=== PATIENT | male | born 2000 | race Caucasian/White ===

== ENCOUNTER 2021-12-29 18:18 | Observation (INO) ==
--- NOTE | 2021-12-29 18:29 | Emergency Department Note ---
Impression & Plan Epileptic seizure, Recurrent seizures ED Provider Note Name: RENITA NELSON Age: 21 Sex: M Arrives Via: Ambulance Informant: Patient, EMS, Mother ED Provider: Raulito Doe MD Chief Complaint: Seizure Impression: As per impressions above Medical Decision Makin-year-old healthy male who has a seizure disorder since age of 17 arrives for evaluation of 4 seizures within the last 12 hours. These are tonic-clonic in nature. The first 2 were overnight in the second 2 or this afternoon with patient not fully come to between the third and fourth seizures. Mother did give him some Klonopin prior to arrival. Patient was awake alert oriented on arrival and given some Ativan to help further protect from further seizure. Initial labs were unremarkable. His vital signs noted some tachycardic and mild/low-grade temperature elevation. He has a mild sore throat and thus strep was sent which is negative. COVID/flu is negative. He no nuchal rigidity and is not showing any evidence of meningitis on examination. His labs show mild WBC elevation consistent with recent seizure as there is no other clear evidence of infection. At hospitalist request that he get a chest x-ray which is negative. Patient was discussed with his neurology team at [facility] who felt that patient should be loaded with Keppra 2 g and monitored overnight. They suggested increasing his Lamictal to 250 mg twice daily. Did discuss this with the mother who is somewhat anxious about that as at that dose he has had issues with side effects in the past. I will note following the Ativan and Keppra patient was quite somnolent. Patient is able to be awoken and answers questions before falling back to sleep. He is not having further seizure activity. Patient did admit that he had missed the dose of his Lamictal earlier in the week as well as having been drinking last night. I suspect this is all lowered his seizure threshold resulting in the recurrent seizures today. I do not feel this is truly infectious though a slight viral infection could cause a lower threshold as well. I do not feel that LP would be indicated at this time given no evidence of nuchal rigidity and patient looking appearing well at this time. Mother is at bedside throughout his care and was on board with this plan. Prior Medical Record and Triage/Nursing Notes reviewed by Me Additional history obtained from chart Differentials:Epilepsy, infection, hypoglycemia, electrolyte abnormalities, cardiac sources, intracerebral event, trauma, toxicologic, neurologic, syncope, as well as other pathologies. Vital Signs: reviewed and remarkable for tachy Interventions: IV lock, normal saline bolus, Tylenol p.o., Ativan IV, Keppra IV Labs:Reviewed and remarkable for no significant abnormalities Imagin view chest x-ray unremarkable. CT head was not obtained as I discussed this with mother and she agrees that he has had many images studies before and that this is similar to previous seizure issues other than the recurrence today. EKG:Per My Interpretation: Indication Seizure: Sinus Tach 113 bpm, qtc 430. No Ectopy. No Ischemia. No previous for comparison Cardiac/Tele Monitoring: Cardiac Monitoring: An Order was placed for continuous cardiac monitoring. The monitor shows a rate of 80 with a normal sinus rhythm. Consults:Dr Dawson [place] Hospitalist Dr Elizabeth Conn Neuro - [facility] Plan: Disposition:Hospitalization. Condition: Good History of Present Illness:49-year-old gentleman arrives for evaluation of a seizure. Patient with a long history of seizure disorder followed at [facility]. He notes that few days ago he missed the dose of his Lamictal and the next day did have a brief tonic-clonic seizure. He said he recovered from that and was feeling well. Last night he did drink some alcohol before going to bed. Overnight per his girlfriend he had 2 seizures. Throughout the day he had 2 more seizures. His mother did drive up from [place] this morning due to the seizures overnight and on having further he was brought in by EMS. Patient states he currently has a headache, tongue pain but denies any other symptoms. He does admit he bit his tongue several times during the seizures. He has no d ifficulty breathing, chest pain, shortness of breath, back pain, abdominal pain, nausea, vomiting, urinary/bowel symptoms, leg swelling or other symptoms. He has had no falls nor injuries. He denies any drug or tobacco abuse. Patient does have a seizure disorder diagnosed and is on Lamictal chronically for it. He had no medications prior to arrival. ROS: See above HPI for pertinent positives & negatives. A total of 10 systems reviewed and were otherwise negative. Past Medical History:Seizures Past Surgical History:[place]vik teeth Family History:Healthy no medical issues Social History:[employer] [facility] from [place], occasional alcohol, no drug/tobacco use Home Medications:Lamictal Allergies:No known drug allergies Vitals:Blood Pressure: 112/58, Pulse 79, RR 18, T 36.7C, O2 96% on RA Physical Exam: GENERAL: Patient is tired appearing and in mild distress. EYES: No scleral icterus, unremarkable pupils. ENT: Mucous membranes moist, no nasal congestion. Multiple abrasions to tongue NECK: No masses appreciated, nomeningismus, trachea is midline. RESPIRATORY: No dyspnea. Clear to auscultation and equal bilaterally. No wheeze, no rhonchi. CARDIOVASCULAR: Regular rate and rhythm.No murmurs, rubs, gallops appreciated. GASTROINTESTINAL: Abdomen soft, non-tender, no peritonitis.Bowel sounds positive.No masses appreciated. BACK: No midline tenderness, no CVA tenderness EXTREMITIES: Normal motion all extremities, no cyanosis, no edema. NEUROLOGIC: Alert and oriented, no acute motor or sensory deficits, no focal weakness, cranial nerves grossly intact. SKIN: No rash, no jaundice, no diaphoresis. PSYCH: Appropriate GCS: 15 ED Course: Times/Reassessments: Stable though did get quite somnolent after Ativan and Keppra. He is sleeping soundly but is able to be awoken. He was monitored for some some time without any further seizure activity. To hospitalize mother is on board with Raulito Doe MD Past Med/Surg History Social History Smoking Status: Never smoker Preferred Language: Pashto Feels Safe at Home: Yes Allergies Allergies Allergy/AdvReac Type Severity Reaction Status Date / Time No Known Allergies Allergy Unverified 12/29/21 20:14 Home Meds Home Medications Medication Instructions Recorded Confirmed lamotrigine 200 mg tablet,extended 200 mg PO QAM 12/29/21 12/29/21 release 24 hr lamotrigine 250 mg tablet,extended 250 mg PO QPM 12/29/21 12/29/21 release 24 hr multivitamin 1 tab PO DAILY 12/29/21 12/29/21 Results & Data (ED) Vital Signs Vital Signs - 24 hr 12/29/21 18:40 12/29/21 19:32 12/29/21 20:00 Temperature 37.9 C H Temperature Source Oral Pulse Rate 121 H Pulse Rate [Left Finger] 99 H 100 H Pulse Rhythm [Left Finger] Regular Respiratory Rate 19 18 20 Respiratory Effort / Characteristics Non-Labored Non-Labored Spontaneous Non-Labored Spontaneous Respiratory Depth Normal Normal Normal Blood Pressure 116/63 Blood Pressure [Right Arm] 104/41 L 112/58 L Blood Pressure Mean 80 Blood Pressure Mean [Right Arm] 62 76 Pulse Oximetry 97 96 95 Oxygen Delivery Method Room Air Room Air Room Air Sepsis Recent Fever Within 48 Hours No Sepsis New/Unexplained Change in Mental Status No Sepsis Action Taken by Nursing No Action Required 12/29/21 21:59 12/29/21 22:16 12/29/21 23:00 Temperature 36.7 C Temperature Source Oral Pulse Rate Pulse Rate [Left Finger] 90 93 H 79 Pulse Rhythm [Left Finger] Regular Regular Regular Respiratory Rate 16 16 18 Respiratory Effort / Characteristics Non-Labored Spontaneous Non-Labored Spontaneous Non-Labored Spontaneous Respiratory Depth Normal Normal Normal Blood Pressure Blood Pressure [Right Arm] Blood Pressure Mean Blood Pressure Mean [Right Arm] Pulse Oximetry 96 95 96 Oxygen Delivery Method Room Air Room Air Room Air Sepsis Recent Fever Within 48 Hours Sepsis New/Unexplained Change in Mental Status Sepsis Action Taken by Nursing Laboratory Data Result diagrams: 12/29/21 18:45 12/29/21 18:45 Lab Results 12/29/21 12/29/21 12/29/21 Range/Units 18:45 18:45 18:45 WBC 14.96 H (4.8-10.8) K/uL RBC 5.01 (4.7-6.1) M/uL Hgb 15.6 (14.0-18.0) g/dL Hct 44.3 (42-52) % MCV 88.4 (80-100) fL MCH 31.1 (25-34) pg MCHC 35.2 (32-36) g/dL RDW Std Deviation 40.7 (36.4-46.3) fL RDW Coeff of Aliyah 12.6 (11.5-14.5) % Plt Count 218 (130-400) K/uL MPV 11.0 H (7.4-10.4) fL Immature Gran % (Auto) 0.1 % Neut % (Auto) 90.1 % Lymph % (Auto) 4.2 % [place] % (Auto) 5.5 % Eos % (Auto) 0.0 % Baso % (Auto) 0.1 % Neut # (Auto) 13.46 H (1.4-6.5) K/uL Lymph # (Auto) 0.63 L (1.2-3.4) K/uL [place] # (Auto) 0.83 H (0.11-0.59) K/uL Eos # (Auto) 0.00 (0-0.5) K/uL Baso # (Auto) 0.02 (0-0.2) K/uL Immature Gran # (Auto) 0.02 (0.00-0.02) K/uL Sodium 138 (136-145) mmol/L Potassium 4.8 (3.5-5.1) mmol/L Chloride 104 (98-107) mmol/L Carbon Dioxide 21 (21-32) mmol/L Anion Gap 13 H (3-11) BUN 14 (6-23) mg/dl Creatinine 1.15 (0.6-1.4) mg/dl Est Cr Clr Drug Dosing 84.4 ml/min Est GFR ( Amer) 104.1 ml/min Est GFR (Non-Af Amer) 89.8 ml/min BUN/Creatinine Ratio 12.2 (10-20) Glucose 102 H (70-99(Fasting)) mg/dl Calcium 10.0 (8.5-10.1) mg/dl Total Bilirubin 0.5 (0.2-1.0) mg/dl Direct Bilirubin 0.1 (0-0.2) mg/dl AST 21 (13-39) U/L ALT 20 (7-52) U/L Alkaline Phosphatase 83 (34-104) U/L Total Protein 7.3 (6.0-8.3) gm/dl Albumin 5.2 H (3.4-5.0) gm/dl SARS-CoV-2 (PCR) (Negative) Monoscreen Negative (Negative) Influenza Type A (PCR) (Neg) Influenza Type B (PCR) (Neg) RSV (RT-PCR) (Neg) Group A Strep (PCR) (NotDetected) 12/29/21 12/29/21 Range/Units 19:25 19:25 WBC (4.8-10.8) K/uL RBC (4.7-6.1) M/uL Hgb (14.0-18.0) g/dL Hct (42-52) % MCV (80-100) fL MCH (25-34) pg MCHC (32-36) g/dL RDW Std Deviation (36.4-46.3) fL RDW Coeff of Aliyah (11.5-14.5) % Plt Count (130-400) K/uL MPV (7.4-10.4) fL Immature Gran % (Auto) % Neut % (Auto) % Lymph % (Auto) % [place] % (Auto) % Eos % (Auto) % Baso % (Auto) % Neut # (Auto) (1.4-6.5) K/uL Lymph # (Auto) (1.2-3.4) K/uL [place] # (Auto) (0.11-0.59) K/uL Eos # (Auto) (0-0.5) K/uL Baso # (Auto) (0-0.2) K/uL Immature Gran # (Auto) (0.00-0.02) K/uL Sodium (136-145) mmol/L Potassium (3.5-5.1) mmol/L Chloride (98-107) mmol/L Carbon Dioxide (21-32) mmol/L Anion Gap (3-11) BUN (6-23) mg/dl Creatinine (0.6-1.4) mg/dl Est Cr Clr Drug Dosing ml/min Est GFR ( Amer) ml/min Est GFR (Non-Af Amer) ml/min BUN/Creatinine Ratio (10-20) Glucose (70-99(Fasting)) mg/dl Calcium (8.5-10.1) mg/dl Total Bilirubin (0.2-1.0) mg/dl Direct Bilirubin (0-0.2) mg/dl AST (13-39) U/L ALT (7-52) U/L Alkaline Phosphatase (34-104) U/L Total Protein (6.0-8.3) gm/dl Albumin (3.4-5.0) gm/dl SARS-CoV-2 (PCR) NEGATIVE (Negative) Monoscreen (Negative) Influenza Type A (PCR) Negative (Neg) Influenza Type B (PCR) Negative (Neg) RSV (RT-PCR) Negative (Neg) Group A Strep (PCR) NOT DETECTED (NotDetected) Administered Medications Sodium Chloride (Nss 1000ml) 1,000 mls @ 125 mls/hr IV .Q8H ANABELLE Stop: 01/28/22 20:44 Last Admin: 12/29/21 21:21 Dose: 125 mls/hr Documented by: [id number] Discontinued Medications Acetaminophen (Acetaminophen 500 Mg Tab) 1,000 mg PO NOW STA Stop: 12/29/21 19:15 Last Admin: 12/29/21 19:22 Dose: 1,000 mg Documented by: [id number] Sodium Chloride (Nss 1000ml) 1,000 mls @ 999 mls/hr IV .Q1H1M ONE Stop: 12/29/21 19:41 Last Infusion: 12/29/21 20:22 Dose: 0 mls/hr Documented by: [id number] Admin: 12/29/21 19:15 Dose: 999 mls/hr Documented by: [id number] Levetiracetam 2,000 mg/ Sodium (Chloride) 270 mls @ 999 mls/hr IV NOW STA Stop: 12/29/21 19:30 Last Infusion: 12/29/21 20:23 Dose: 0 mls/hr Documented by: [id number] Admin: 12/29/21 19:36 Dose: 999 mls/hr Documented by: [id number] Lorazepam (Lorazepam 2 Mg/1 Ml Vial) 1 mg IV NOW STA Stop: 12/29/21 18:32 Last Admin: 12/29/21 19:15 Dose: 1 mg Documented by: [id number] Ondansetron HCl (Ondansetron Inj 2 Mg/Ml 2 Ml Vial) 4 mg IV NOW STA Stop: 12/29/21 18:58 Last Admin: 12/29/21 19:16 Dose: 4 mg Documented by: [id number] Discharge Plan Visit Data Chief Complaint: Seizure Stated Complaint: SEIZURE ED Provider: Raulito Doe Discharge Problem: Epileptic seizure, Recurrent seizures Forms Stand Alone Forms: My [facility] [employer] Prescriptions Prescriptions: No Action multivitamin Tablet 1 tab PO DAILY RF: 0 lamotrigine 200 mg tablet extended release 24hr 200 mg PO QAM RF: 0 lamotrigine 250 mg tablet extended release 24hr 250 mg PO QPM RF: 0 Referrals Referrals: PCP,NO [Physician] -
[2021-12-29] MEDS ORDERED: LORazepam 2 MG/1 ML VIAL IV STA (18:31)
[2021-12-29] MEDS ORDERED: SODIUM CHLORIDE 0.9% 1000ML 1,000 ML IV ONE (18:41)
[2021-12-29] MEDS ORDERED: ONDANSETRON INJ 2 MG/ML 2 ML VIAL IV STA (18:57)
[2021-12-29 18:58] LABS: Basophils # (auto) 0.02 K/uL (0-0.2); Basophils % (auto) 0.1 %; Hematocrit (blood only) 44.3 % (42-52); Hemoglobin 15.6 g/dL (14.0-18.0); Immature Granulocytes # (auto) 0.02 K/uL (0.00-0.02); Immature Granulocytes % (auto) 0.1 %; Lymphocytes # (auto) 0.63 K/uL (1.2-3.4); Lymphocytes % (auto) 4.2 %; Mean Corpuscular Hemoglobin 31.1 pg (25-34); Mean Corpuscular Hgb Conc 35.2 g/dL (32-36); Mean Corpuscular Volume 88.4 fL (80-100); Monocytes # (auto) 0.83 K/uL (0.11-0.59); Monocytes % (auto) 5.5 %; Neutrophils # (auto) 13.46 K/uL (1.4-6.5); Neutrophils % (auto) 90.1 %; Platelet Count 218 K/uL (130-400); RDW Coefficient of Variation 12.6 % (11.5-14.5); RDW Standard Deviation 40.7 fL (36.4-46.3); Red Blood Count 5.01 M/uL (4.7-6.1); White Blood Count 14.96 K/uL (4.8-10.8)
[2021-12-29] MEDS ORDERED: ACETAMINOPHEN 500 MG TAB PO STA (19:14)
[2021-12-29] MEDS ORDERED: lamoTRIgine 100 MG TAB PO STA (19:21)
[2021-12-29 19:26] LABS: Albumin Level 5.2 gm/dl (3.4-5.0); BUN Creatinine Ratio 12.2 (10-20); Bilirubin Direct 0.1 mg/dl (0-0.2); Bilirubin,Total 0.5 mg/dl (0.2-1.0); Creatinine Clr Calc Pharmacy 84.4 ml/min; Est GFR (African American) 104.1 ml/min; Est GFR (Non-African American) 89.8 ml/min; Potassium 4.8 mmol/L (3.5-5.1); Total Protein 7.3 gm/dl (6.0-8.3)
[2021-12-29 20:18] LABS: Influenza A virus by PCR Negative (Neg); Influenza B virus by PCR Negative (Neg); RSV by PCR Negative (Neg); SARS CoV2 RNA(COVID-19) InHosp NEGATIVE (Negative)
[2021-12-29] MEDS: SODIUM CHLORIDE 0.9% 1000ML 1,000 ML IV SCH (21:21)
--- NOTE | 2021-12-29 23:28 | History & Physical Report ---
Date of Service December 29, 2021 Assessment & Plan (1) Recurrent seizures: Plan: Recurrent seizures/seizure disorder- Continue Lamictal 250 mg p.o. twice daily Given Keppra 2000 mg IV loading dose, then continue 500 mg p.o. twice daily Seizure precautions Received NSS 1 L in the ED, and continue 125 mLs per hour Lorazepam 2 mg IV every 2 hours as needed seizure activity Zofran 4 mg IV every 6 hours as needed Acetaminophen 650 mg p.o. every 6 hours. Mild pain or fever Consult with neurologist from [place] in the a.m. regarding any other treatment plans (2) Seizure disorder: Plan: To the above History of Present Illness Chief Complaint: The patient presents to the emergency department with report of 4 seizures with in the past 12 hours, with his mother giving him some Klonopin prior to arrival to the ED Primary Care Provider: [facility] The patient is a 21-year-old male with a past medical history of seizure disorder, who presents to the emergency department with having had 4 seizures in the past 12 hours. He reportedly missed dosing of Lamictal about 3 days ago. He was given IV Ativan upon arrival to the ED. He had routine laboratories including CBC with differential and chemistry profile which were normal. At the recommendation of his neurologist in [place], who the ED consulted with, he was given a loading dose of Keppra 2000 mg IV, with plans to admit overnight, and continue his Lamictal 250 mg p.o. twice daily. Allergies Allergy/AdvReac Type Severity Reaction Status Date / Time No Known Allergies Allergy Unverified 12/29/21 20:14 Home Medications Medication Instructions Recorded Confirmed Type lamotrigine 200 mg tablet,extended 200 mg PO QAM 12/29/21 12/29/21 History release 24 hr lamotrigine 250 mg tablet,extended 250 mg PO QPM 12/29/21 12/29/21 History release 24 hr multivitamin 1 tab PO DAILY 12/29/21 12/29/21 History Past Med/Surg History Social History Smoking Status: Never smoker Hx Alcohol Use: Yes Hx Substance Use: No Preferred Language: Albanian Communication Ability: Effective Current Living Situation Comment: student Feels Safe at Home: Yes Safety Concerns: Feels Safe At This Time Review of Systems Review of Systems: The patient is not able to contribute to his HPI or review of systems, due to postictal interval, and having been given IV Ativan for seizure treatment and prevention. His mother is with him, provides the necessary information as noted Physical Exam Physical Exam: The patient is sedated, well developed and well nourished, normocephalic and atraumatic, lying in bed and in no acute distress. HEENT--PERRL, EOMI, mucous membranes and oropharynx normal Neck--supple. No JVD. No bruits. Thyroid normal, trachea midline, no adenopathy. Heart--normal S1 and S2. No murmurs, rubs or gallops. Lungs--clear bilaterally, no respiratory distress, no accessory muscle use. Abdomen--normal bowel sounds and soft. Nontender. Nondistended, no hernias or masses, no organomegaly. Extremities--no cyanosis or clubbing. No edema. Dermatologic--normal skin turgor, normal color, no abnormal lymph nodes, no rash. Neurologic--limited exam due to sedation Rheumatologic--limited exam due to sedation Psychiatric--sedated Results & Data Results & Data ([facility]) Vital Signs (Past 12 Hours) Vital Signs Temp Pulse Pulse Resp BP BP Pulse Ox 12/29/21 23:00 36.7 C 79 18 96 12/29/21 22:16 93 H 16 95 12/29/21 21:59 90 16 96 12/29/21 20:00 100 H 20 112/58 L 95 12/29/21 19:32 99 H 18 104/41 L 96 12/29/21 18:40 37.9 C H 121 H 19 116/63 97 Laboratory Results Laboratory Results WBC 14.96 K/uL (4.8-10.8) H 12/29/21 18:45 RBC 5.01 M/uL (4.7-6.1) 12/29/21 18:45 Hgb 15.6 g/dL (14.0-18.0) 12/29/21 18:45 Hct 44.3 % (42-52) 12/29/21 18:45 MCV 88.4 fL (80-100) 12/29/21 18:45 MCH 31.1 pg (25-34) 12/29/21 18:45 MCHC 35.2 g/dL (32-36) 12/29/21 18:45 RDW Std Deviation 40.7 fL (36.4-46.3) 12/29/21 18:45 RDW Coeff of Aliyah 12.6 % (11.5-14.5) 12/29/21 18:45 Plt Count 218 K/uL (130-400) 12/29/21 18:45 MPV 11.0 fL (7.4-10.4) H 12/29/21 18:45 Immature Gran % (Auto) 0.1 % 12/29/21 18:45 Neut % (Auto) 90.1 % 12/29/21 18:45 Lymph % (Auto) 4.2 % 12/29/21 18:45 [place] % (Auto) 5.5 % 12/29/21 18:45 Eos % (Auto) 0.0 % 12/29/21 18:45 Baso % (Auto) 0.1 % 12/29/21 18:45 Neut # (Auto) 13.46 K/uL (1.4-6.5) H 12/29/21 18:45 Lymph # (Auto) 0.63 K/uL (1.2-3.4) L 12/29/21 18:45 [place] # (Auto) 0.83 K/uL (0.11-0.59) H 12/29/21 18:45 Eos # (Auto) 0.00 K/uL (0-0.5) 12/29/21 18:45 Baso # (Auto) 0.02 K/uL (0-0.2) 12/29/21 18:45 Immature Gran # (Auto) 0.02 K/uL (0.00-0.02) 12/29/21 18:45 Sodium 138 mmol/L (136-145) 12/29/21 18:45 Potassium 4.8 mmol/L (3.5-5.1) 12/29/21 18:45 Chloride 104 mmol/L (98-107) 12/29/21 18:45 Carbon Dioxide 21 mmol/L (21-32) 12/29/21 18:45 Anion Gap 13 (3-11) H 12/29/21 18:45 BUN 14 mg/dl (6-23) 12/29/21 18:45 Creatinine 1.15 mg/dl (0.6-1.4) 12/29/21 18:45 Est Cr Clr Drug Dosing 84.4 ml/min 12/29/21 18:45 Est GFR ( Amer) 104.1 ml/min 12/29/21 18:45 Est GFR (Non-Af Amer) 89.8 ml/min 12/29/21 18:45 BUN/Creatinine Ratio 12.2 (10-20) 12/29/21 18:45 Glucose 102 mg/dl (70-99(Fasting)) H 12/29/21 18:45 Calcium 10.0 mg/dl (8.5-10.1) 12/29/21 18:45 Total Bilirubin 0.5 mg/dl (0.2-1.0) 12/29/21 18:45 Direct Bilirubin 0.1 mg/dl (0-0.2) 12/29/21 18:45 AST 21 U/L (13-39) 12/29/21 18:45 ALT 20 U/L (7-52) 12/29/21 18:45 Alkaline Phosphatase 83 U/L (34-104) 12/29/21 18:45 Total Protein 7.3 gm/dl (6.0-8.3) 12/29/21 18:45 Albumin 5.2 gm/dl (3.4-5.0) H 12/29/21 18:45 SARS-CoV-2 (PCR) NEGATIVE (Negative) 12/29/21 19:25 Monoscreen Negative (Negative) 12/29/21 18:45 Influenza Type A (PCR) Negative (Neg) 12/29/21 19:25 Influenza Type B (PCR) Negative (Neg) 12/29/21 19:25 RSV (RT-PCR) Negative (Neg) 12/29/21 19:25 Group A Strep (PCR) NOT DETECTED (NotDetected) 12/29/21 19:25 Code Status & VTE Plan Code Status Full code VTE Prophylaxis Plan VTE Prophylaxis will be ordered: Yes PG Care Time/CCT Total # of Minutes Spent Total Time Spent with Patient: Total time spent is greater than 50% in coordination of care (as documented) at patient's floor/unit and/or counseling patient: Coding Level of Care Code INT OBSERVATION CARE 70M LVL 3 Diagnoses Recurrent seizures G40.909 Seizure disorder G40.909
[2021-12-30] MEDS ORDERED: LORazepam 2 MG/1 ML VIAL IV PRN (00:29)
[2021-12-30] MEDS ORDERED: ACETAMINOPHEN 325 MG TAB PO PRN (00:29)
[2021-12-30] MEDS ORDERED: lamoTRIgine 25 MG TAB PO STA (00:47)
--- NOTE | 2021-12-30 03:48 | Communication Note ---
Date of Service: December 30, 2021 Was notified about new 1st deg heart block at 1:24. PA interval .24. PA was not prolonged on admission ecg. Checking Mg w/ AM labs. Repeat ecg in AM.
[2021-12-30] MEDS: SODIUM CHLORIDE 0.9% 1000ML 1,000 ML IV SCH ×2 (05:17→13:18)
--- NOTE | 2021-12-30 08:01 | XRay Report ---
XR chest 1V portable HISTORY: post seizure, fever COMPARISON: None. FINDINGS: The lungs are clear. Cardiac silhouette is normal in size. No pleural effusions. No pneumot horax. IMPRESSION: No acute process. ACT 112: Negative or not required by law. Electronically signed by: Jacques Markham M.D. 12/30/2021 7:59 AM
[2021-12-30 08:22] LABS: Basophils # (auto) 0.03 K/uL (0-0.2); Basophils % (auto) 0.4 %; Eosinophils # (auto) 0.02 K/uL (0-0.5); Eosinophils % (auto) 0.2 %; Hematocrit (blood only) 39.9 % (42-52); Hemoglobin 13.5 g/dL (14.0-18.0); Immature Granulocytes # (auto) 0.02 K/uL (0.00-0.02); Immature Granulocytes % (auto) 0.2 %; Lymphocytes # (auto) 1.44 K/uL (1.2-3.4); Lymphocytes % (auto) 17.8 %; Mean Corpuscular Hemoglobin 30.4 pg (25-34); Mean Corpuscular Hgb Conc 33.8 g/dL (32-36); Mean Corpuscular Volume 89.9 fL (80-100); Mean Platelet Volume 11.1 fL (7.4-10.4); Monocytes # (auto) 0.65 K/uL (0.11-0.59); Neutrophils # (auto) 5.92 K/uL (1.4-6.5); Neutrophils % (auto) 73.4 %; Platelet Count 172 K/uL (130-400); RDW Coefficient of Variation 12.8 % (11.5-14.5); RDW Standard Deviation 41.5 fL (36.4-46.3); Red Blood Count 4.44 M/uL (4.7-6.1); White Blood Count 8.08 K/uL (4.8-10.8)
[2021-12-30 08:44] LABS: Albumin Level 4.1 gm/dl (3.4-5.0); BUN Creatinine Ratio 13.7 (10-20); Calcium 8.7 mg/dl (8.5-10.1); Creatinine Clr Calc Pharmacy 103.5 ml/min; Est GFR (African American) 131.2 ml/min; Est GFR (Non-African American) 113.2 ml/min; Phosphorus 3.4 mg/dl (2.5-4.9); Potassium 4.1 mmol/L (3.5-5.1)
[2021-12-30] MEDS: MULTIVITAMIN TAB PO SCH (08:54)
[2021-12-30] MEDS ORDERED: levETIRAcetam 500 MG TAB PO SCH (09:00)
[2021-12-30] MEDS ORDERED: NON-FORMULARY MEDICATION (Lamotrigine 200 mg tablet extended release 24hr) PO SCH (09:00)
[2021-12-30 09:07] LABS: Appearance Urine Clear (Clear); Bilirubin Urine Negative (Negative); Blood Urine Negative (Negative); Color Urine Yellow; Glucose Urine UA Negative (Negative); Ketones Urine 2+ (Negative); Leukocyte Esterase Urine Negative (Negative); Nitrite Urine Negative (Negative); Protein Urine Negative (Negative); Specific Gravity Urine 1.018 (1.000-1.030); Urobilinogen Urine Negative (Negative)
--- NOTE | 2021-12-30 10:29 | Hospitalist Progress Note ---
Date of Service December 30, 2021 Assessment & Plan (1) Recurrent seizures: Plan: Recurrent seizures/seizure disorder- patient has been on medications since childhood. Had been on trileptal initially but this was discontinued due to side effects. Per mother, Shyla, Neurology strayed away initially from Keppra given prior memory issues and patient has been on Lamictal for several years. Mother does note that patient does ahve prior seizure history around test taking, wonder if sleep deprevation contributing. --> Also, admitted 1 missed dose this past week for Lamictal, as well as 2 beers + 1 shot etoh, and suspect lowered seizure threshold and rec'd abstaining from such Lamictal dosing 200mg in AM (decreased from 250mg due to AM nausea), 250mg at night --> Mother to bring this in as non-formulary Per discussion with ER and Neurologist in [place], recs to load with 2000mg IV keppra, continue 500mg BID daily --> Called Neurology office, left message for Nurse Drake to call back regarding plan for discharge. Continue IVF for now, slightly dry on examination Lorazepam IV prn seizure activity, zofran prn nausea Tylenol prn fever/pain Maintain seizure precautions Monitoring overnight for any further episodes/call back from [place]. --> POssible discharge later this evening vs data migration lead depending on coordination of care (2) Seizure disorder: Plan: To the above Plan: continued monitoring, awaiting call back from [place] [facility] Likely d/c in AM, possibly later tonight depending. Updated mom, Shyla, on phone this morning. Allowed to visit early to bring in his Lamictal , cleared with charge nurse. She is in area, traveling today from [place] and then will have access to a car. Admission and Anticipated Discharge Date Admission Date: December 29, 2021 Supervising Physician Co-Signing Physician Notes Attending Attestation - Chart reviewed in detail, care plan d/w STEPHANIE Ramey. I agree w/ the waters components of her documentation. Appreciate Ms Ramey contacting the pt's primary neurologist in [place]. Recommendations reviewed from Dr Anderson including not continuing the keppra at discharge but increasing the lamictal to 250mg BID. He should be monitored overnight for recurrent seizures. He should also be monitored overnight for recurrent fever (had temp 37.9 at presentation). Specific source for that fever not found. Close f/u with neurology post-discharge will be needed. Good sleep hygiene, limits on alcohol consumption, etc should be d/w the patient before discharge. Skyler wade this morning missed 1 dose lamictal last week, episode of drinking 2 beers + 1 shot 4 tonix/clonic seizure like activity yesterday feeling well today, discussed recs for Kera. Prior issues with tripetal per mother Shyla, and had decreased aM lamictal to 200mg due to nausea side effects. She notes Neurologist did not go to [facility] initially as Shabbir had issues with memory and they did not utilize this at first. Reviewed recommendations overnight by neurology and [facility]ir[facility] Lamictal as non-formulary. Of note, rec monitoring overnight/waiting return call from neurology to confirm medication changes and follow up care. Mother does note they have follow up appointment with Dr Butt in January. Of note, she does note that prior hx of seizures have been closer to finals/projects being due. Discussed could have been combination of missing pill, alcohol, sleep deprivation contributing, as she notes they went with the ER as they were told lower chance of any issues with just one missed dose. Review of Systems Review of Systems: All systems reviewed & are unremarkable except as noted in HPI & below Physical Exam Physical Exam: General: WN/WD male resting in bed, no acute distress HEENT: head normocephalic, atraumatic, mm slightly dry, edema to R tongue (bite carmen from seizure noted), trachea midline without deviation Resp: CTAB, no w/c/r, on room air CV: RRR, no m/r/g, no edema, cap refill wnl GI: +BS, soft, nontender Neuro/Psych: no focal deficit, answering questions appropriately, speech clear (exception slight muffling from swollen tongue from bite), EOMI, CN intact grossly, AOx3, pleasant and cooperative Skin: warm, dry Results & Data Results & Data ([facility]) Vital Signs (Past 12 Hours) Vital Signs Temp Pulse Pulse Resp BP BP BP 12/30/21 07:47 76 12/30/21 07:36 36.7 C 85 16 93/49 L 12/30/21 03:05 36.4 C L 90 16 107/57 L 12/30/21 00:39 77 16 93/42 L 12/30/21 00:24 77 12/30/21 00:20 36.6 C 87 16 103/58 L 12/29/21 23:00 36.7 C 79 18 Pulse Ox 12/30/21 07:47 12/30/21 07:36 96 12/30/21 03:05 97 12/30/21 00:39 95 12/30/21 00:24 12/30/21 00:20 98 12/29/21 23:00 96 Laboratory Results 12/30/21 12/30/21 12/30/21 Range/Units 08:55 07:43 07:43 WBC 8.08 (4.8-10.8) K/uL RBC 4.44 L (4.7-6.1) M/uL Hgb 13.5 L (14.0-18.0) g/dL Hct 39.9 L (42-52) % MCV 89.9 (80-100) fL MCH 30.4 (25-34) pg MCHC 33.8 (32-36) g/dL RDW Std Deviation 41.5 (36.4-46.3) fL RDW Coeff of Aliyah 12.8 (11.5-14.5) % Plt Count 172 (130-400) K/uL MPV 11.1 H (7.4-10.4) fL Immature Gran % (Auto) 0.2 % Neut % (Auto) 73.4 % Lymph % (Auto) 17.8 % [place] % (Auto) 8.0 % Eos % (Auto) 0.2 % Baso % (Auto) 0.4 % Neut # (Auto) 5.92 (1.4-6.5) K/uL Lymph # (Auto) 1.44 (1.2-3.4) K/uL Columbia # (Auto) 0.65 H (0.11-0.59) K/uL Eos # (Auto) 0.02 (0-0.5) K/uL Baso # (Auto) 0.03 (0-0.2) K/uL Immature Gran # (Auto) 0.02 (0.00-0.02) K/uL Sodium 139 (136-145) mmol/L Potassium 4.1 (3.5-5.1) mmol/L Chloride 110 H (98-107) mmol/L Carbon Dioxide 22 (21-32) mmol/L Anion Gap 7 (3-11) BUN 13 (6-23) mg/dl Creatinine 0.95 (0.6-1.4) mg/dl Est Cr Clr Drug Dosing 103.5 ml/min Est GFR ( Amer) 131.2 ml/min Est GFR (Non-Af Amer) 113.2 ml/min BUN/Creatinine Ratio 13.7 (10-20) Glucose 70 (70-99(Fasting)) mg/dl Calcium 8.7 (8.5-10.1) mg/dl Phosphorus 3.4 (2.5-4.9) mg/dl Total Bilirubin (0.2-1.0) mg/dl Direct Bilirubin (0-0.2) mg/dl AST (13-39) U/L ALT (7-52) U/L Alkaline Phosphatase (34-104) U/L Total Protein (6.0-8.3) gm/dl Albumin 4.1 (3.4-5.0) gm/dl Urine Color Yellow Urine Appearance Clear (Clear) Urine pH 5.0 (4.5-7.5) Ur Specific [place] 1.018 (1.000-1.030) Urine Protein Negative (Negative) Urine Glucose (UA) Negative (Negative) Urine Ketones 2+ H (Negative) Urine Blood Negative (Negative) Urine Nitrite Negative (Negative) Urine Bilirubin Negative (Negative) Urine Urobilinogen Negative (Negative) Ur Leukocyte Esterase Negative (Negative) Lamotrigine SARS-CoV-2 (PCR) (Negative) Monoscreen (Negative) Influenza Type A (PCR) (Neg) Influenza Type B (PCR) (Neg) RSV (RT-PCR) (Neg) Group A Strep (PCR) (NotDetected) 12/29/21 12/29/21 12/29/21 Range/Units 19:25 19:25 18:45 WBC (4.8-10.8) K/uL RBC (4.7-6.1) M/uL Hgb (14.0-18.0) g/dL Hct (42-52) % MCV (80-100) fL MCH (25-34) pg MCHC (32-36) g/dL RDW Std Deviation (36.4-46.3) fL RDW Coeff of Aliyah (11.5-14.5) % Plt Count (130-400) K/uL MPV (7.4-10.4) fL Immature Gran % (Auto) % Neut % (Auto) % Lymph % (Auto) % [place] % (Auto) % Eos % (Auto) % Baso % (Auto) % Neut # (Auto) (1.4-6.5) K/uL Lymph # (Auto) (1.2-3.4) K/uL [place] # (Auto) (0.11-0.59) K/uL Eos # (Auto) (0-0.5) K/uL Baso # (Auto) (0-0.2) K/uL Immature Gran # (Auto) (0.00-0.02) K/uL Sodium (136-145) mmol/L Potassium (3.5-5.1) mmol/L Chloride (98-107) mmol/L Carbon Dioxide (21-32) mmol/L Anion Gap (3-11) BUN (6-23) mg/dl Creatinine (0.6-1.4) mg/dl Est Cr Clr Drug Dosing ml/min Est GFR ( Amer) ml/min Est GFR (Non-Af Amer) ml/min BUN/Creatinine Ratio (10-20) Glucose (70-99(Fasting)) mg/dl Calcium (8.5-10.1) mg/dl Phosphorus (2.5-4.9) mg/dl Total Bilirubin (0.2-1.0) mg/dl Direct Bilirubin (0-0.2) mg/dl AST (13-39) U/L ALT (7-52) U/L Alkaline Phosphatase (34-104) U/L Total Protein (6.0-8.3) gm/dl Albumin (3.4-5.0) gm/dl Urine Color Urine Appearance (Clear) Urine pH (4.5-7.5) Ur Specific E[place] (1.000-1.030) Urine Protein (Negative) Urine Glucose (UA) (Negative) Urine Ketones (Negative) Urine Blood (Negative) Urine Nitrite (Negative) Urine Bilirubin (Negative) Urine Urobilinogen (Negative) Ur Leukocyte Esterase (Negative) Lamotrigine Pending SARS-CoV-2 (PCR) NEGATIVE (Negative) Monoscreen (Negative) Influenza Type A (PCR) Negative (Neg) Influenza Type B (PCR) Negative (Neg) RSV (RT-PCR) Negative (Neg) Group A Strep (PCR) NOT DETECTED (NotDetected) 12/29/21 12/29/21 12/29/21 Range/Units 18:45 18:45 18:45 WBC 14.96 H (4.8-10.8) K/uL RBC 5.01 (4.7-6.1) M/uL Hgb 15.6 (14.0-18.0) g/dL Hct 44.3 (42-52) % MCV 88.4 (80-100) fL MCH 31.1 (25-34) pg MCHC 35.2 (32-36) g/dL RDW Std Deviation 40.7 (36.4-46.3) fL RDW Coeff of Aliyah 12.6 (11.5-14.5) % Plt Count 218 (130-400) K/uL MPV 11.0 H (7.4-10.4) fL Immature Gran % (Auto) 0.1 % Neut % (Auto) 90.1 % Lymph % (Auto) 4.2 % [place] % (Auto) 5.5 % Eos % (Auto) 0.0 % Baso % (Auto) 0.1 % Neut # (Auto) 13.46 H (1.4-6.5) K/uL Lymph # (Auto) 0.63 L (1.2-3.4) K/uL [place] # (Auto) 0.83 H (0.11-0.59) K/uL Eos # (Auto) 0.00 (0-0.5) K/uL Baso # (Auto) 0.02 (0-0.2) K/uL Immature Gran # (Auto) 0.02 (0.00-0.02) K/uL Sodium 138 (136-145) mmol/L Potassium 4.8 (3.5-5.1) mmol/L Chloride 104 (98-107) mmol/L Carbon Dioxide 21 (21-32) mmol/L Anion Gap 13 H (3-11) BUN 14 (6-23) mg/dl Creatinine 1.15 (0.6-1.4) mg/dl Est Cr Clr Drug Dosing 84.4 ml/min Est GFR ( Amer) 104.1 ml/min Est GFR (Non-Af Amer) 89.8 ml/min BUN/Creatinine Ratio 12.2 (10-20) Glucose 102 H (70-99(Fasting)) mg/dl Calcium 10.0 (8.5-10.1) mg/dl Phosphorus (2.5-4.9) mg/dl Total Bilirubin 0.5 (0.2-1.0) mg/dl Direct Bilirubin 0.1 (0-0.2) mg/dl AST 21 (13-39) U/L ALT 20 (7-52) U/L Alkaline Phosphatase 83 (34-104) U/L Total Protein 7.3 (6.0-8.3) gm/dl Albumin 5.2 H (3.4-5.0) gm/dl Urine Color Urine Appearance (Clear) Urine pH (4.5-7.5) Ur Specific E[place] (1.000-1.030) Urine Protein (Negative) Urine Glucose (UA) (Negative) Urine Ketones (Negative) Urine Blood (Negative) Urine Nitrite (Negative) Urine Bilirubin (Negative) Urine Urobilinogen (Negative) Ur Leukocyte Esterase (Negative) Lamotrigine SARS-CoV-2 (PCR) (Negative) Monoscreen Negative (Negative) Influenza Type A (PCR) (Neg) Influenza Type B (PCR) (Neg) RSV (RT-PCR) (Neg) Group A Strep (PCR) (NotDetected) Diagnostic Findings Chest X-Ray 12/29/21 22:40 XR chest 1V portable HISTORY: post seizure, fever COMPARISON: None. FINDINGS: The lungs are clear. Cardiac silhouette is normal in size. No pleural effusions. No pneumothorax. IMPRESSION: No acute process. ACT 112: Negative or not required by law. Electronically signed by: Jacques Markham M.D. 12/30/2021 7:59 AM PG Care Time/CCT Total # of Minutes Spent Total Time Spent with Patient: Total time spent is greater than 50% in coordination of care (as documented) at patient's floor/unit and/or counseling patient: Coding Level of Care Code 99178 Subseq Obs Care Lvl 3 Diagnoses Recurrent seizures G40.909 Seizure disorder G40.909
[2021-12-30] MEDS ORDERED: ONDANSETRON 4 MG OD TAB PO PRN (11:39)
[2021-12-30] MEDS: LAMICTAL 250 MG PO SCH ×2 (12:30→22:31)
[2021-12-30] MEDS ORDERED: LAMICTAL 250 MG PO SCH (12:30)
[2021-12-30] MEDS ORDERED: IBUPROFEN 600 MG TAB PO STA (13:47)
--- NOTE | 2021-12-30 14:04 | Electrocardiogram Report ---
Test Reason : Blood Pressure : / mmHG Vent. Rate : 113 BPM Atrial Rate : 113 BPM P-R Int : 170 ms QRS Dur : 080 ms QT Int : 314 ms P-R-T Axes : 076 167 068 degrees QTc Int : 430 ms Sinus tachycardia Biatrial enlargement Right axis deviation Incomplete right bundle branch block Abnormal ECG No previous ECGs available Confirmed by Sanford Mtz ([id number]) on 12/30/2021 2:04:30 PM Referred By: REFERRED SELF Confirmed By:Robbie Mtz
--- NOTE | 2021-12-30 14:12 | Electrocardiogram Report ---
Test Reason : Blood Pressure : / mmHG Vent. Rate : 093 BPM Atrial Rate : 093 BPM P-R Int : 202 ms QRS Dur : 086 ms QT Int : 352 ms P-R-T Axes : 077 101 075 degrees QTc Int : 437 ms Normal sinus rhythm with 1st degree AV block Biatrial enlargement Rightward axis Pulmonary disease pattern Abnormal ECG When compared with ECG of 29-DEC-2021 18:30, (unconfirmed) QRS axis Shifted left Confirmed by Sanford Mtz ([id number]) on 12/30/2021 2:12:17 PM Referred By: REFERRED SELF Confirmed By:Robbie Mtz
[2021-12-30] MEDS ORDERED: NON-FORMULARY MEDICATION (Lamotrigine 250 mg tablet extended release 24hr) PO SCH (21:00)
[2021-12-30] MEDS ORDERED: IBUPROFEN 600 MG TAB PO PRN (22:00)
[2021-12-31] MEDS: MULTIVITAMIN TAB PO SCH (07:49)
[2021-12-31] MEDS: LAMICTAL 250 MG PO SCH (07:52)
--- NOTE | 2021-12-31 08:37 | Discharge Summary ---
Date of Service December 31, 2021 Admission HPI Per Admitting Provider The patient is a 21-year-old male with a past medical history of seizure disorder, who presents to the emergency department with having had 4 seizures in the past 12 hours. He reportedly missed dosing of Lamictal about 3 days ago. He was given IV Ativan upon arrival to the ED. He had routine laboratories including CBC with differential and chemistry profile which were normal. At the recommendation of his neurologist in [place], who the ED consulted with, he was given a loading dose of Keppra 2000 mg IV, with plans to admit overnight, and continue his Lamictal 250 mg p.o. twice daily. Principal Diagnosis Seizure Discharge Exam Constitutional WD/WN, vitals as above Eyes PERRL, conjunctivae normal, anicteric sclerae Respiratory normal respiratory effort, lungs clear to auscultation Cardiovascular RRR, no murmur, no edema Gastrointestinal (Abdomen) normal bowel sounds, soft, nontender, no hepatosplenomegaly Musculoskeletal no cyanosis or clubbing, extremities motor strength 5/5 Skin no rashes, warm and dry Neurologic moves all extremities and awake; no focal motor deficits and not confused Psychiatric A+Ox3, euthymic affect Discharge Data Allergies Allergy/AdvReac Type Severity Reaction Status Date / Time No Known Allergies Allergy Unverified 12/29/21 20:14 Consultations 12/29/21 22:08 ED Decision to Admit Stat Hospital Course (1) Recurrent seizures: Shabbir Ruiz is a 21 year old male observed to [facility] from December 29 - 2021 due to a seizure. He has a history of recurrent seizure disorders and suspect current seizure due to missing a dose of Lamictal and alcohol use. He was given a loading dose of Keppra but then on discussion with his neurologist discharged on his usual dose of Lamictal after being observed overnight without recurrence of his seizures. (2) Seizure disorder: Total Time Total Time Spent Total Time Spent (In Minutes): 20 Discharge Plan Discharge Items Patient Disposition: Home - Self-Care Reason For Visit: SEIZURE ACTIVITY Discharge Diagnosis: Seizure Goals: You have been hospitalized for an acute medical problem. During your stay at [facility], we have made an effort to correct the problem that brought you to the hospital while keeping you as comfortable as possible. Medications were used to bring your condition under control and your discharge instructions will include directions for any medications you should take after leaving the hospital. Please make sure you see your Primary Care Provider as part of your follow up plan. Activity: Resume your previous activity Non-emergency contact: Primary Care Provider Call non-emergency contact if: you have any medication questions and your symptoms worsen Follow-up/Referrals: [facility] [Primary Care Provider] - Diet: Regular Addtl Attending Provider Instructions: You have been hospitalized for seizure like activity. Discussion was undertaken with Neurology at [place] and you were given loading dose of IV Keppra. We discussed your case with Dr. Anderson from [place] for clarifications for recommendations at discharge and they feel that increasing your lamictal back to 250mg by mouth twice a day should be sufficient, at least until follow up discussions, and you should remember not to have any missed doses, avoid alcohol use as this can lower the threshold for seizure, and ensure you are staying well hydrated and getting adequate sleep. A Lamictal level was drawn on admission, but results will not be available for several days as this is a send out test. You have been sent zofran tablets to use as needed for nausea but as discussed, if only mild would recommend continuing the lamictal as it had been doing job of keeping seizure activity at bay. You should follow up with S in the next 7-10 days to monitor your progress. You should follow up with Dr Butt as scheduled for January, or sooner if possible with your schedule for school. Please return to the emergency department with any continued seizure like activity or for any other symptoms that are concerning for you. It has been a pleasure being a part of the medical team providing for you while you have been in the hospital. Take care! Pending Studies at Discharge: Yes Studies:: Lamictal Level Stand-Alone Forms: My [facility], Smoking Cessation Medications and DC Order Prescriptions: New ondansetron 4 mg Tablet,Disintegrating 4 mg PO Q4H PRN (Reason: nausea and vomiting) Qty: 12 RF: 0 Continued multivitamin Tablet 1 tab PO DAILY RF: 0 Changed lamotrigine 250 mg tablet extended release 24hr 250 mg PO BID Qty: 60 RF: 0 Discontinued lamotrigine 200 mg tablet extended release 24hr 200 mg PO QAM RF: 0 Discharge Orders: Discharge Order (Routine); Ordered 12/31/21 Ordered By: Skyler Henson Admission Data Admit Date/Time: 12/29/21 23:27 Attending Provider: Skyler Henson Admit Provider: Allan Dawson Primary Care Provider: [facility] Other Interventions: Discharge Summary Assessment (RN) Last Done: 12/31/21 09:22 Coding Level of Care Code 53504 OBS Care - Discharge Diagnoses Recurrent seizures G40.909 Seizure disorder G40.909
[2021-12-31 08:38] LABS: Basophils # (auto) 0.01 K/uL (0-0.2); Basophils % (auto) 0.2 %; Eosinophils # (auto) 0.06 K/uL (0-0.5); Eosinophils % (auto) 1.1 %; Hematocrit (blood only) 39.9 % (42-52); Hemoglobin 13.7 g/dL (14.0-18.0); Lymphocytes % (auto) 27.5 %; Mean Corpuscular Hemoglobin 30.6 pg (25-34); Mean Corpuscular Hgb Conc 34.3 g/dL (32-36); Mean Corpuscular Volume 89.1 fL (80-100); Mean Platelet Volume 10.6 fL (7.4-10.4); Monocytes # (auto) 0.49 K/uL (0.11-0.59); Neutrophils # (auto) 3.39 K/uL (1.4-6.5); Neutrophils % (auto) 62.2 %; Platelet Count 143 K/uL (130-400); RDW Coefficient of Variation 12.6 % (11.5-14.5); RDW Standard Deviation 41.1 fL (36.4-46.3); Red Blood Count 4.48 M/uL (4.7-6.1); White Blood Count 5.45 K/uL (4.8-10.8)
[2021-12-31 08:58] LABS: Albumin Level 4.4 gm/dl (3.4-5.0); BUN Creatinine Ratio 10.8 (10-20); Creatinine Clr Calc Pharmacy 119.5 ml/min; Est GFR (African American) 144.8 ml/min; Est GFR (Non-African American) 124.9 ml/min; Magnesium 1.6 mg/dl (1.7-2.4); Phosphorus 2.4 mg/dl (2.5-4.9); Potassium 3.6 mmol/L (3.5-5.1)
== END 2021-12-31 10:18 | disposition home or self-care (01) ==
LOC: 2W 18:18 → ED 18:18 → SUATTDRO 23:27 → 2W 12-30 00:39